=== PATIENT | female | born 1975 | race Caucasian/White ===

== ENCOUNTER 2018-06-17 12:10 | Inpatient (IN) | payer OTHER ==
[~2018-06-17] VITALS: Ht 157.5 cm; Wt 109.5 kg
[~2018-06-17 12:10] MED LIST: OXYTOCIN 30 UNITS/LR 500 ML BAG IV ONE
[2018-06-17 12:53] VITALS: BP 127/84; PULSE 111; Ht 157.5 cm; Wt 109.5 kg
[2018-06-17] MEDS ORDERED: PNV11TAB PO (12:55)
[2018-06-17] MEDS ORDERED: CALC500T11 PO (12:56)
[2018-06-17] MEDS ORDERED: MISOPROSTOL 200 MCG TAB PR PRN ×3 (13:30→22:30)
[2018-06-17] MEDS ORDERED: METHYLERGONOVINE 0.2 MG INJ IM PRN ×3 (13:30→22:30)
[2018-06-17] MEDS ORDERED: OXYTOCIN 30 UNITS/LR 500 ML IV PRN ×3 (13:30→22:30)
[2018-06-17] MEDS ORDERED: CARBOPROST 250 MCG INJ IM PRN ×3 (13:30→22:30)
[2018-06-17] MEDS ORDERED: CLINDAMYCIN 900 MG/D5W (PMX) 50 ML IVPB SCH ×2 (13:30→20:30)
[2018-06-17] MEDS: LACTATED RINGER'S 1,000 ML IV SCH ×2 (14:57→20:17)
[2018-06-17] MEDS ORDERED: OXYTOCIN 30 UNITS/LR 500 ML IV SCH ×2 (17:30→22:03)
[2018-06-17] MEDS ORDERED: BETAMET NA PHOS/AC(6 MG/ML) 2 ML INJ SYG IM SCH ×2 (17:30→21:00)
--- NOTE | 2018-06-17 20:33 | PREAC ---
Date/Time of Note Date/Time of Note DATE: 06/17/18 TIME: 20:33 Anesthesia Eval and Record Evaluation Time Pre-Procedure Interview DATE: 06/17/18 TIME: 20:33 Age 43 Sex female NPO: 8 hrs Preoperative diagnosis Planned procedure repeat c/s Past Medical History Past Medical History: Includes GI: Morbid obesity Surgery & Anesthesia Issues No known issue Meds Anticoagulation: No Beta Mi within 24 hr: No Reason Beta Mi not given: Pt. not on B-Mi Reported Medications Calcium Carbonate (Oysco-500) 500 Mg Tablet, 500 MG PO, TAB 06/17/18 [id number] ( 19) 1 Each Tablet, 1 TAB PO DAILY, TAB 06/17/18 Current Medications Lactated Ringer's 1,000 ml @ 125 mls/hr Q8H IV Last administered on 06/17/18at 20:17; Admin Dose 125 MLS/HR; Start 06/17/18 at 13:27 Betamethasone Acet/Betameth SodPhos (Celestone Soluspan) 12 mg Q12 IM Last administered on 06/17/18at 17:45; Admin Dose 12 MG; Start 06/17/18 at 17:30; Stop 06/18/18 at 05:31 Oxytocin/Lactated Ringer's 500 ml @ 125 mls/hr POST IV ; Start 06/17/18 at 17:30 Clindamycin HCl/ Dextrose 50 ml @ 50 mls/hr ONCE IVPB ; Start 06/17/18 at 20:30 Oxytocin/Lactated Ringer's 500 ml @ 0 mls/hr ONCE PRN IV .VAGINAL BLEEDING; Start 06/17/18 at 20:30 Methylergonovine Maleate (Methergine) 0.2 mg ONCE PRN IM .VAGINAL BLEEDING; Start 06/17/18 at 20:30 Carboprost Tromethamine (Hemabate) 250 mcg ONCE PRN IM .VAGINAL BLEEDING; Start 06/17/18 at 20:30 Misoprostol (Cytotec) 1,000 mcg ONCE PRN [place] .VAGINAL BLEEDING; Start 06/17/18 at 20:30 Meds reviewed: Yes Allergies Coded Allergies: Penicillins (Verified Allergy, Unknown, 06/17/18) ibuprofen (Verified Allergy, Unknown, 06/17/18) latex (Verified Allergy, Unknown, 06/17/18) Allergies Reviewed: Yes Labs/Studies Labs Reviewed: Reviewed by anesthesiologist Result Diagram: 06/17/18 1342 Laboratory Tests 06/17/18 13:42 Blood Bank Test 06/17/18 13:42 Antibody Screen NEGATIVE Blood Type B POSITIVE Rh Immune Globulin Candidate NO test: Positive Pre-procedure Exam Last vitals Vital Signs Date Temp Pulse Resp B/P (MAP) Pulse Ox O2 O2 Flow FiO2 Time Delivery Rate 06/17/18 98.4 111 127/84 12:53 (98) Airway: Adequate mouth opening, Adequate thyromental dist Mallampati: Mallampati II Teeth: Normal Lung: Normal Heart: Normal ASA Physical Status ASA physical status: 2 Emergency: None Planned Anesthetic Neuraxial: Spinal, Epidural Planned Pain Management Sub-arachniod narcotics Pre-operative Attestations Prior to commencing anesthesia and surgery, the patient was re-evaluated, there was verification of: *The patient's identity *The results of appropriate recent lab work and preoperative vital signs *The above evaluation not changing prior to induction *Anesthetic plan, risk benefits, alternative and complications discussed with patient/family; questions answered; patient/family understands, accepts and wishes to proceed. KAVEH ROLAND June 17, 2018 20:33
[2018-06-17] MEDS ORDERED: morphine SULFATE/PF (10 MG/10 ML) INJ ONE (20:37)
[2018-06-17] MEDS ORDERED: ONDANSETRON 4 MG INJ IV PRN ×2 (21:00)
[2018-06-17] MEDS ORDERED: FENTAnyl 50 MCG/ML VIAL IV PRN ×3 (21:00)
[2018-06-17] MEDS ORDERED: DIPHENHYDRAMINE 50 MG INJ IV PRN (21:00)
[2018-06-17] MEDS ORDERED: NALOXONE (0.4 MG/ML) INJ IV PRN (21:00)
[2018-06-17] MEDS ORDERED: HYDROmorphONE 1 MG/5 ML IV SYRINGE IV PRN ×3 (21:00)
[2018-06-17] MEDS ORDERED: METOCLOPRAMIDE 10 MG INJ IV PRN (21:00)
[2018-06-17] MEDS ORDERED: ALBUTEROL 0.083% (NEB) 2.5 MG/3 ML AMP HHN PRN (21:00)
[2018-06-17] MEDS ORDERED: PHENYLephrine (100 MCG/ML) 10ML SYG ONE (21:12)
--- NOTE | 2018-06-17 21:33 | PREOPHP ---
DATE OF ADMISSION: 06/17/2018 ADMITTING DIAGNOSIS: 36 and 6/7 weeks intrauterine in labor with previous and ad vanced maternal age. HISTORY OF PRESENT ILLNESS: This is a 43-year-old lady, 10, para 3 with 4 abortions and 2 sp ontaneous abortions and 2 and 1 normal delivery. Her due date is 07/09/2018. A 36 and 6/7 weeks, admitted to labor and delivery area in early labor and with questionable leaking bag of water . Her CINTHYA on admission is 3.3. She continued to have contractions and the patient was feeling them and intensity was of 8/10. Every time she has the pain, she feels a lot of lower abdominal pressure and back pains. Because of the labor pains then, she was scheduled to have a repeat . Proc edure was explained to the patient and she understood everything totally. The risks, benefits, and a lternatives were discussed with her as well. PAST PERSONAL HISTORY: No history of diabetes, TB, asthma. ALLERGIES: NO ALLERGIES. SOCIAL HISTORY: The patient does not smoke. She does not drink. MEDICATIONS: She does not take any drugs except her iron and vitamins. GYNECOLOGIC HISTORY: She had menarche at the age of 12, every 28 days interval, 3 to 4 days duration , and moderate in amount. FAMILY HISTORY: Mother has diabetes and hypertension. REVIEW OF SYSTEMS: CARDIOVASCULAR: No chest pains. RESPIRATORY: No cough. GASTROINTESTINAL: No diarrhea, no vomiting. GENITOURINARY: No dysuria. PHYSICAL EXAMINATION: GENERAL: Reveals a conscious, coherent lady and in no acute distress. VITAL SIGNS: Her blood pressure 130/80, pulse rate 80 per minute, respirations 16 per minute. BREASTS, HEART AND LUNGS: Within normal limits. ABDOMEN: Soft. No tenderness noted. Fundic height 38 cm. heart tones 140 per minute. PELVIC: Done by me revealed the cervix to be 2 cm dilated, thick, station floating in cephalic prese ntation with the bag of water questionable rupture. The ROM Plus was negative and there was bleeding or fluid coming out. The patient was observed in the hospital, but then she continued to have pains and the patient feels them and so she was scheduled to have for 36 weeks, and 6/7 in labor . Dictated By: BASIL OLVERA/MARCELA Conf#: [id number] [facility]#: [id number]
--- NOTE | 2018-06-17 22:01 | PAC ---
Date/Time of Note Date/Time of Note DATE: 06/17/18 TIME: 22:01 Post-Anesthesia Notes Post-Anesthesia Note Last documented vital signs Vital Signs Date Temp Pulse Resp B/P (MAP) Pulse Ox O2 O2 Flow FiO2 Time Delivery Rate 06/17/18 98.4 111 127/84 12:53 (98) Activity: WNL Respiratory function: WNL Cardiovascular function: WNL Mental status: Baseline Pain reasonably controlled: Yes Hydration appropriate: Yes Nausea/Vomiting absent: Yes KAVEH ROLAND June 17, 2018 22:01
[2018-06-17] MEDS ORDERED: LACTATED RINGER'S 1,000 ML IV SCH (22:03)
--- NOTE | 2018-06-17 22:03 | OPPN ---
Date/Time of Note Date/Time of Note DATE: 06/17/18 TIME: 22:00 Operative Report Planned Procedure Procedure date June 17, 2018 Procedure(s) REPEAT CSECTION AND BTL Performed by see signature line Trap Puller: A 2nd Trap Puller none Pre-procedure diagnosis 36 WEEKS IUP IN LABOR MULTIPARITY [id number] Anesthesia Type: Kyrrj2e spinal Post-Procedure Post-procedure diagnosis 36 WEEKS IUP IN LABOR MULTIPARITY Findings Live Baby GIRL, [id number] , [id number] Estimated Blood Loss: 500 - 600 mls Specimen(s) none Grafts/Implant(s) PLACENTA BOTH TUBES Complication(s) none BASIL TIPTON MD June 17, 2018 22:03
[2018-06-17] MEDS ORDERED: METHYLERGONOVINE 0.2 MG TAB PO PRN (22:30)
[2018-06-17] MEDS ORDERED: HYDROCODONE/APAP (5/325) TAB PO PRN (22:30)
[2018-06-17] MEDS ORDERED: LANOLIN HPA 1 PKT TOP PRN (22:30)
[2018-06-18 00:35] VITALS: BP 108/64; PULSE 102; RESP 20
[2018-06-18] MEDS: DIPHENHYDRAMINE 50 MG INJ IV PRN ×2 (02:25→14:22)
[2018-06-18 03:54] VITALS: BP 122/64; PULSE 90; RESP 20
[2018-06-18 07:50] VITALS: BP 111/61; PULSE 97; RESP 18
[2018-06-18] MEDS: SENNA/DOCUSATE NA (8.6MG/50MG) TAB PO SCH ×2 (09:34→21:19)
[2018-06-18] MEDS ORDERED: HYDROmorphONE 0.5 MG/0.5 ML SYG IV PRN ×3 (10:00)
[2018-06-18] MEDS: LACTATED RINGER'S 1,000 ML IV SCH ×2 (11:01→17:56)
[2018-06-18 12:00] VITALS: BP 113/64; PULSE 100; RESP 18
[2018-06-18] MEDS ORDERED: ALBUTEROL HFA 8 GM INHALER INH PRN (15:00)
[2018-06-18 16:00] VITALS: BP 106/62; PULSE 95; RESP 18
[2018-06-18] MEDS: HYDROCODONE/APAP (5/325) TAB PO PRN ×2 (18:53→22:39)
[2018-06-18 20:15] VITALS: BP 108/66; PULSE 84; RESP 18
--- NOTE | 2018-06-18 21:37 | PN ---
Date/Time of Note Date/Time of Note DATE: 06/18/18 TIME: 21:36 Assessment/Plan VTE Prophylaxis Risk score (from Ns)>0 risk: 3 SCD applied (from [facility] [place]): No SCD contraindicated: low risk/ambulating Pharmacological prophylaxis: NA/contraindicated Pharm contraindication: low risk/ambulating Lines/Catheters [facility]from [facility] Saline Lock Assessment/Plan Assessment/Plan POSTCSECTION DAY 1 ORDERED ADVANCE DIET TOLERATED CBC ON 3RD POSTOP DAY Result Diagram: 06/18/18 0801 06/18/18 0801 Results 24hrs Laboratory Tests Test 06/18/18 06:25 06/18/18 08:01 Lab Scanned Report REFERENCE LAB White Blood Count 25.5 #H Red Blood Count 3.83 L Hemoglobin 11.6 L Hematocrit 35.2 L Mean Corpuscular Volume 91.9 Mean Corpuscular Hemoglobin 30.3 Mean Corpuscular Hemoglobin Concent 33.0 Red Cell Distribution Width 14.5 Platelet Count 188 Mean Platelet Volume 12.0 H Immature Granulocytes % 1.200 H Neutrophils % 85.6 H Lymphocytes % 6.7 L Monocytes % 6.4 Eosinophils % 0.0 Basophils % 0.1 Nucleated Red Blood Cells % 0.0 Immature Granulocytes # 0.300 H Neutrophils # 21.8 H Lymphocytes # 1.7 Monocytes # 1.6 H Eosinophils # 0.0 Basophils # 0.0 Nucleated Red Blood Cells # 0.0 Sodium Level 135 Potassium Level 4.4 Chloride Level 105 Carbon Dioxide Level 20 L Anion Gap 10 Blood Urea Nitrogen 4 L Creatinine 0.42 L Est Glomerular Filtrat Rate mL/min > 60 Glucose Level 106 Calcium Level 10.0 Subjective 24 Hr Interval Summary Free Text/Dictation POST CSECTION DAY 1 COMPLAIN OF INCISIONAL PAINS GOOD URINE OUTPUT PASSING GAS PER RECTUM LITTLE BOWEL MOVEMENT Exam/Review of Systems Exam Vitals Vital Signs Date Temp Pulse Resp B/P (MAP) Pulse Ox O2 O2 Flow FiO2 Time Delivery Rate 06/18/18 98.4 84 18 108/66 Room Air 20:15 (80) 06/18/18 95 16:00 Intake and Output 06/17/18 06/17/18 06/18/18 1515:00 23:00 07:00 IntakeIntake Total 650 ml 1000 ml OutputOutput Total 100 ml 1000 ml BalanceBalance 550 ml 0 ml Exam VITAL SIGNS STABLE: YES AFEBRILE: YES BREAST NOT ENGORGED, NON-TENDER, NO APPRECIABLE MASS: YES LUNGS CLEAR, NO RALES, WHEEZES, RHONCHI: YES SINUS RHYTHM WITHOUT MURMUR: YES ABDOMEN: NON-TENDER FUNDUS: BELOW UMBILICUS BOWEL SOUNDS: PRESENT UTERUS: FIRM INCISION (CLEAN, DRY, AND INTACT): YES LOCHIA: LIGHT DEEP TENDON REFLEXES: 0 EXTREMITIES: NO CALF TENDERNESS EDEMA SCALE: NONE Results Results 24hrs Laboratory Tests Test 06/18/18 06:25 06/18/18 08:01 Lab Scanned Report REFERENCE LAB White Blood Count 25.5 #H Red Blood Count 3.83 L Hemoglobin 11.6 L Hematocrit 35.2 L Mean Corpuscular Volume 91.9 Mean Corpuscular Hemoglobin 30.3 Mean Corpuscular Hemoglobin Concent 33.0 Red Cell Distribution Width 14.5 Platelet Count 188 Mean Platelet Volume 12.0 H Immature Granulocytes % 1.200 H Neutrophils % 85.6 H Lymphocytes % 6.7 L Monocytes % 6.4 Eosinophils % 0.0 Basophils % 0.1 Nucleated Red Blood Cells % 0.0 Immature Granulocytes # 0.300 H Neutrophils # 21.8 H Lymphocytes # 1.7 Monocytes # 1.6 H Eosinophils # 0.0 Basophils # 0.0 Nucleated Red Blood Cells # 0.0 Sodium Level 135 Potassium Level 4.4 Chloride Level 105 Carbon Dioxide Level 20 L Anion Gap 10 Blood Urea Nitrogen 4 L Creatinine 0.42 L Est Glomerular Filtrat Rate mL/min > 60 Glucose Level 106 Calcium Level 10.0 Medications Medication Current Medications Methylergonovine Maleate (Methergine) 0.2 mg Q6H PRN PO .VAGINAL BLEEDING; Start 06/17/18 at 22:30 Acetaminophen/ Hydrocodone Bitart ([place] (5/325)) 1 tab Q4H PRN PO MODERATE PAIN LEVEL 4-6; Start 06/17/18 at 22:30 Acetaminophen/ Hydrocodone Bitart ([place] (5/325)) 2 tab Q4H PRN PO SEVERE PAIN LEVEL 7-10 Last administered on 06/18/18at 18:53; Admin Dose 2 TAB; Start 06/17/18 at 22:30 Simethicone (Mylicon) 160 mg Q8H PRN PO .GAS Last administered on 06/18/18at 21:19; Admin Dose 160 MG; Start 06/17/18 at 22:30 Senna/Docusate Sodium (Senokot-S) 1 tab BID PO Last administered on 06/18/18at 21:19; Admin Dose 1 TAB; Start 06/18/18 at 09:00 Lanolin (Lanolin Hpa) 1 applic BEDSIDE MEDICATION PRN TOP .NIPPLES; Start 06/17/18 at 22:30 Oxytocin/Lactated Ringer's 500 ml @ 0 mls/hr ONCE PRN IV .VAGINAL BLEEDING; Start 06/17/18 at 22:30 Methylergonovine Maleate (Methergine) 0.2 mg ONCE PRN IM .VAGINAL BLEEDING; Start 06/17/18 at 22:30 Carboprost Tromethamine (Hemabate) 250 mcg ONCE PRN IM .VAGINAL BLEEDING; Start 06/17/18 at 22:30 Misoprostol (Cytotec) 1,000 mcg ONCE PRN [place] .VAGINAL BLEEDING; Start 06/17/18 at 22:30 Hydromorphone HCl (Dilaudid) 0.2 mg Q4H PRN IV MILD PAIN 1-4; Start 06/18/18 at 10:00 Hydromorphone HCl (Dilaudid) 0.4 mg Q4H PRN IV MODERATE PAIN 5-6 Last admini stered on 06/18/18at 14:33; Admin Dose 0.4 MG; Start 06/18/18 at 10:00 Hydromorphone HCl (Dilaudid) 0.6 mg Q4H PRN IV SEVERE PAIN LEVEL 7-10; Start 06/18/18 at 10:00 Lactated Ringer's 1,000 ml @ 125 mls/hr Q8H IV Last administered on 06/18/18at 17:56; Admin Dose 125 MLS/HR; Start 06/18/18 at 11:00 Albuterol (Ventolin Hfa) 2 puff Q4H RESP THERAPY PRN INH SHORTNESS OF BREATH; Start 06/18/18 at 15:00 BASIL TIPTON MD June 18, 2018 21:37
[2018-06-19] MEDS: HYDROCODONE/APAP (5/325) TAB PO PRN ×4 (03:09→22:31)
[2018-06-19] MEDS ORDERED: MAGNESIUM HYDROXIDE 30ML CUP PO ONE ×3 (04:00→15:30)
[2018-06-19] MEDS ORDERED: BISACODYL 10 MG SUPP PR ONE ×3 (04:00→20:00)
[2018-06-19 04:07] VITALS: BP 110/84; PULSE 80; RESP 18
[2018-06-19] MEDS: SENNA/DOCUSATE NA (8.6MG/50MG) TAB PO SCH ×2 (08:44→21:22)
[2018-06-19 08:50] VITALS: BP 110/64; PULSE 93; RESP 16
[2018-06-19] MEDS: LACTATED RINGER'S 1,000 ML IV SCH ×2 (13:28→13:29)
[2018-06-19 15:55] VITALS: BP 114/62; PULSE 85; RESP 18
--- NOTE | 2018-06-19 16:35 | OPR ---
DATE OF OPERATION: 06/17/2018 PREOPERATIVE DIAGNOSES: 1. A 36 and 6/7 weeks' intrauterine in labor. 2. Previous section. 3. Multiparity. 4. Desires sterilization. POSTOPERATIVE DIAGNOSES: 1. A 36 and 6/7 weeks' intrauterine in labor. 2. Previous section. 3. Multiparity. 4. Desires sterilization. 5. Severe pelvic and abdominal adhesions. OPERATION PERFORMED: Repeat low transverse section plus bilateral tubal ligation and transe ction and lysis of abdominal and pelvic adhesions. SURGEON: Basil Crane MD STOVE FITTER: Cary Espinal MD ANESTHESIA: Spinal. ANESTHESIOLOGIST: Chad Kwok MD OPERATIVE TECHNIQUE: Under spinal anesthesia, the patient was prepped and draped in the usual fashio n for abdominal surgery. After checking for the effect of the anesthesia, Pfannenstiel incision, 12 cm skin incision was performed. The previous scar was excised. The incision was carried from the sk in up to the fascia. Upon opening the skin up to the fascia, small blood vessels were noted to be oo zing and these were all cauterized. Fascia was opened transversely followed by splitting the muscles vertically and the peritoneum vertically. Upon opening the abdominal cavity, there were omental adh esions noted all over the anterior parietal peritoneum. All these adhesions were lysed by sharp and blunt dissection. After lysing all the adhesions, then the bladder blade was put in place. A small kriss was performed from the serosa up to the endometrium on the lower uterine segment and about 2 inc hes above the lower uterine segment. The lower uterine segment was noted to be thinned out. An inci charles was performed from the serosa up to the endometrium on the lower uterine segment and incision wa s carried from the serosa up to the endometrium and carried sidewise with the aid of my 2 fingers. M y left hand was inserted in the lower segment of the uterus and the bag of water was ruptured. Clear fluid was noted. Baby's head was delivered with good fundal pressure. Baby's airway was quickly reynolds ctioned with amniotic fluid. Then, the anterior shoulder, posterior shoulder and rest of the body of the baby were delivered. Baby was handed to the nursery nurse after 30 seconds after the cord was c lamped. The placenta was delivered manually and complete. The uterus was exteriorized. The uterus was cleansed with wet lap sponge to make sure that no membranes were left behind. After correc t sponge count, the uterus was closed in the usual fashion using #1 chromic for the first layer, cont inuous locking suture was used followed by #1 chromic for the second layer, imbricating sutures were used. Bleeders were checked and there was no bleeding noted. After checking for any bleeders, which there were none, both tubes and ovaries were inspected. They were healthy looking. The back of the uterus was checked for any hematoma and there was none noted. Then, the right tube was grasped in t he center where the avascular area was. A 1 cm tube was stick tied at the proximal and distal portio ns with 2-0 silk stick tie with 2-0 chromic above the first silk tie and another free tie with 2-0 ch romic above the second tie. The right tube was cut and the cut ends were cauterized. The right fimb surinder was identified. Same thing was done on the left side. Left fimbria was identified. After check ing for any bleeders in which there were none, then the uterus was put back to the pelvic cavity. On ce again, uterine incision was checked for any bleeders and there was no bleeding noted. After corre ct sponge count, needle count and instrument count as confirmed by the technology coach and fan blade aligner, the abdomen was closed in the usual fashion using 0 Vicryl for the peritoneum, 0 Vicryl for the muscles. For the fascia, 0 Vicryl continuous stitch was used followed by few [id number]-flarw sutures. For t he subcutaneous tissue, it was closed with 3-0 Vicryl and the skin was closed with 3-0 Vicryl, subcut icular suture was used. The patient tolerated the procedure well. Estimated blood loss about was 60 0 mL. Vital signs were stable during and after the procedure. She delivered a healthy baby girl, we ight 2805 grams, 21:08, 9 and 9. Dictated By: BASIL OLVERA/NTS Conf#: [id number] DID#: [id number]
--- NOTE | 2018-06-19 16:56 | PN ---
Date/Time of Note Date/Time of Note DATE: 06/19/18 TIME: 16:54 Assessment/Plan VTE Prophylaxis Risk score (from Nsg)>0 risk: 3 SCD applied (from Ns): No SCD contraindicated: low risk/ambulating Pharmacological prophylaxis: NA/contraindicated Pharm contraindication: low risk/ambulating Lines/Catheters IV Catheter Type (from Nrsg): Saline Lock Assessment/Plan Assessment/Plan POST CSECTION DAY 2 MOM AND DULCOLAX SUPPOSITORY HOME TOMORROW CBC TOMORROW COUNSELED INSTRUCTED PRESCRIPTION GIVEN FOR PAIN RETURN TO CLINIC IN 2 WEEKS CALL OFFICE IF THERE IS ANY PROBLEM OR CONCERN CONTINUE WITH VITAMINS OD AND FERROUS SULFATE 325MG PO TID DIET ADVISED Result Diagram: 06/19/18 0732 06/18/18 0801 Results 24hrs Laboratory Tests Test 06/19/18 07:32 White Blood Count 18.9 #H Red Blood Count 3.91 L Hemoglobin 11.6 L Hematocrit 36.8 L Mean Corpuscular Volume 94.1 Mean Corpuscular Hemoglobin 29.7 Mean Corpuscular Hemoglobin Concent 31.5 L Red Cell Distribution Width 14.6 H Platelet Count 197 Mean Platelet Volume 11.9 H Immature Granulocytes % 1.200 H Neutrophils % 79.9 H Lymphocytes % 11.5 L Monocytes % 6.8 Eosinophils % 0.4 Basophils % 0.2 Nucleated Red Blood Cells % 0.0 Immature Granulocytes # 0.220 H Neutrophils # 15.1 H Lymphocytes # 2.2 Monocytes # 1.3 H Eosinophils # 0.1 Basophils # 0.0 Nucleated Red Blood Cells # 0.0 Subjective 24 Hr Interval Summary Free Text/Dictation POST CSECTION DAY 2 NO BOWEL MOVEMENT GOOD URINE OUTPUT FEELS LESS INCISIONAL PAINS Exam/Review of Systems Exam Vitals Vital Signs Date Temp Pulse Resp B/P (MAP) Pulse Ox O2 O2 Flow FiO2 Time Delivery Rate 06/19/18 98.5 93 16 110/64 99 Room Air 08:50 (79) Intake and Output 06/18/18 06/18/18 06/19/18 1414:59 22:59 06:59 IntakeIntake Total 750 ml OutputOutput Total 850 ml 1700 ml 300 ml BalanceBalance -100 ml -1700 ml -300 ml Exam VITAL SIGNS STABLE: YES AFEBRILE: YES BREAST NOT ENGORGED, NON-TENDER, NO APPRECIABLE MASS: YES LUNGS CLEAR, NO RALES, WHEEZES, RHONCHI: YES SINUS RHYTHM WITHOUT MURMUR: YES ABDOMEN: NON-TENDER FUNDUS: BELOW UMBILICUS BOWEL SOUNDS: PRESENT UTERUS: FIRM INCISION (CLEAN, DRY, AND INTACT): YES LOCHIA: LIGHT DEEP TENDON REFLEXES: 0 EXTREMITIES: NO CALF TENDERNESS EDEMA SCALE: NONE Results Results 24hrs Laboratory Tests Test 06/19/18 07:32 White Blood Count 18.9 #H Red Blood Count 3.91 L Hemoglobin 11.6 L Hematocrit 36.8 L Mean Corpuscular Volume 94.1 Mean Corpuscular Hemoglobin 29.7 Mean Corpuscular Hemoglobin Concent 31.5 L Red Cell Distribution Width 14.6 H Platelet Count 197 Mean Platelet Volume 11.9 H Immature Granulocytes % 1.200 H Neutrophils % 79.9 H Lymphocytes % 11.5 L Monocytes % 6.8 Eosinophils % 0.4 Basophils % 0.2 Nucleated Red Blood Cells % 0.0 Immature Granulocytes # 0.220 H Neutrophils # 15.1 H Lymphocytes # 2.2 Monocytes # 1.3 H Eosinophils # 0.1 Basophils # 0.0 Nucleated Red Blood Cells # 0.0 Medications Medication Current Medications Methylergonovine Maleate (Methergine) 0.2 mg Q6H PRN PO .VAGINAL BLEEDING; Start 06/17/18 at 22:30 Acetaminophen/ Hydrocodone Bitart ([place] (5/325)) 1 tab Q4H PRN PO MODERATE PAIN LEVEL 4-6; Start 06/17/18 at 22:30 Acetaminophen/ Hydrocodone Bitart (Ramer (5/325)) 2 tab Q4H PRN PO SEVERE PAIN LEVEL 7-10 Last administered on 06/19/18at 14:54; Admin Dose 2 TAB; Start 06/17/18 at 22:30 Simethicone (Mylicon) 160 mg Q8H PRN PO .GAS Last administered on 06/19/18at 15:05; Admin Dose 160 MG; Start 06/17/18 at 22:30 Senna/Docusate Sodium (Senokot-S) 1 tab BID PO Last administered on 06/19/18at 08:44; Admin Dose 1 TAB; Start 06/18/18 at 09:00 Lanolin (Lanolin Hpa) 1 applic BEDSIDE MEDICATION PRN TOP .NIPPLES; Start 06/17/18 at 22:30 Oxytocin/Lactated Ringer's 500 ml @ 0 mls/hr ONCE PRN IV .VAGINAL BLEEDING; Start 06/17/18 at 22:30 Methylergonovine Maleate (Methergine) 0.2 mg ONCE PRN IM .VAGINAL BLEEDING; Start 06/17/18 at 22:30 Carboprost Tromethamine (Hemabate) 250 mcg ONCE PRN IM .VAGINAL BLEEDING; Start 06/17/18 at 22:30 Misoprostol (Cytotec) 1,000 mcg ONCE PRN [place] .VAGINAL BLEEDING; Start 06/17/18 at 22:30 Hydromorphone HCl (Dilaudid) 0.2 mg Q4H PRN IV MILD PAIN 1-4; Start 06/18/18 at 10:00 Hydromorphone HCl (Dilaudid) 0.4 mg Q4H PRN IV MODERATE PAIN 5-6 Last administered on 06/18/18at 14:33; Admin Dose 0.4 MG; Start 06/18/18 at 10:00 Hydromorphone HCl (Dilaudid) 0.6 mg Q4H PRN IV SEVERE PAIN LEVEL 7-10; Start 06/18/18 at 10:00 Lactated Ringer's 1,000 ml @ 125 mls/hr Q8H IV Last administered on 06/18/18at 17:56; Admin Dose 125 MLS/HR; Start 06/18/18 at 11:00 Albuterol (Ventolin Hfa) 2 puff Q4H RESP THERAPY PRN INH SHORTNESS OF BREATH; Start 06/18/18 at 15:00 BASIL TIPTON MD June 19, 2018 16:56
[2018-06-19 20:00] VITALS: BP 114/69; PULSE 96; RESP 18
[2018-06-20] MEDS: HYDROCODONE/APAP (5/325) TAB PO PRN ×2 (03:35→07:38)
[2018-06-20 04:06] VITALS: BP 114/69; PULSE 86; RESP 18
[2018-06-20 07:40] VITALS: BP 109/65; PULSE 79; RESP 18
[2018-06-20] MEDS ORDERED: MEASLES,MUMPS,RUBELLA VACCINE INJ SC* ONE (09:00)
[2018-06-20] MEDS: SENNA/DOCUSATE NA (8.6MG/50MG) TAB PO SCH (09:32)
[2018-06-20] MEDS ORDERED: BACITRACIN 0.9 GM OINT TOP ONE (14:30)
[2018-06-20] MEDS ORDERED: BACITRACIN 0.5%/ZINC 28.35 GM OINT TOP ONE (14:30)
--- NOTE | 2018-06-21 17:27 | DELSUM ---
Delivery Summary A-C Datetime Report Generated by CPN: 06/21/2018 17:27 DELIVERY PERSONNEL Office Assistance: Ping Rodriguez MATERNAL INFORMATION Delivery Anesthesia: Spinal Medications in Delivery: SEE ANESTHESIA RECORD Delivery QBL (ml): 600 Placenta Cultured: No Maternal Complications: Other Other Maternal Complications: previous c/section x1, low CINTHYA LABOR SUMMARY EDC: 07/09/2018 00:00 No. Babies in Womb: 1 Attempted: No Labor Anesthesia: None LABOR INFORMATION Reason for Induction: Not Applicable Onset of Labor: 06/17/2018 12:00 Oxytocin: N/A Group B Beta Strep: Negative Antibiotics # of Doses: X1 CLEOCIN Antibiotics Time of Last Dose: 06/17/2018 20:51 Steroids Given: Partial Course Reason Steroids Not Administered: Indication MEMBRANES Membranes Rupture Method: Artificial Rupture of Membranes: 06/17/2018 21:09 Length of Rupture (hr): -0.02 Amniotic Fluid Color: Clear Amniotic Fluid Amount: Small Amniotic Fluid Odor: None STAGES OF LABOR Stage 3 hr: 0 Stage 3 min: 1 Total Time in Labor hr: 9 Total Time in Labor min: 9 CSECTION DELIVERY Primary Indication: Other Other Primary Indication: prev c/section x2 Secondary Indication: N/A CSection Urgency: Elective CSection Incidence: Repeat Labor: Labor Elective: Nonelective CSection Incision: Lower Uterine Transverse Sterilization Procedure: [place] BABY A INFORMATION Infant Delivery Date/Time: 06/17/2018 21:08 Method of Delivery: Born in Route : No : N/A Forceps: N/A Vacuum Extraction: N/A Shoulder Dystocia : N/A SHOULDER DYSTOCIA BABY A Infant Delivery Date/Time: 06/17/2018 21:08 PRESENTATION/POSITION BABY A Presentation: Cephalic Cephalic Presentation: Vertex Vertex Position: Left Occipital Anterior Breech Presentation: N/A PLACENTA INFORMATION BABY A Placenta Delivery Time : 06/17/2018 21:09 Placenta Method of Delivery: Expressed Placenta Status: Delivered SCORES BABY A Heart Rate 1 min: >100 bpm Resp Effort 1 min: Good Cry Reflex Irritability 1 min: Cough/Sneeze/Pulls Away Muscle Tone 1 min: Active Motion Color 1 min: Blue/Pale Resuscitation Effort 1 min: Tactile Stimulation; PPV/NCPAP SCORE 1 MIN: 8 Heart Rate 5 min: >100 bpm Resp Effort 5 min: Good Cry Reflex Irritability 5 min: Cough/Sneeze/Pulls Away Muscle Tone 5 min: Active Motion Color 5 min: Body [place], Extremit Blue Resuscitation Effort 5 min: Tactile Stimulation SCORE 5 MIN: 9 INFANT INFORMATION BABY A Gestational Age at Delivery: 36.6 Gestational Status: Late - 34- 36.6 Weeks Outcome : Liveborn Infant Condition : Stable Infant Sex: Female IDENTIFICATION/MEDS BABY A ID Band Number: [id number] ID Band Location: Right Leg; Left Arm Sensor Applied: Yes Sensor Number: [id number] Sensor Location : Cord Clamp Vitamin K Given : Not Given Erythromycin Given: Not Given WEIGHT/LENGTH BABY A Infant Birthweight (gm): 2805 Infant Weight (lb): 6 Infant Weight (oz): 3 Infant Length (in): 18.00 Length (cm): 45.72 CORD INFORMATION BABY A No. Cord Vessels: 3 Nuchal Cord : N/A Cord Blood Taken: Yes Suction: Mouth; Nose ASSESSMENT BABY A Complications: None Physical Findings at Delivery: Within Normal Limits Infant Respirations: Appears Normal Hydraulic Design Engineer/ALS Called : No Infant Care By: Marita FAJARDO Transferred To: Remains with Mother
--- NOTE | 2018-06-21 23:20 | NSTRPT ---
NST Information Datetime Report Generated by CPN: 06/21/2018 23:19 Datetime: 06/17/2018 10:50 Test Number: 2 Reason for NST: Other Reason for NST Other: Adavnaced Maternal Age Test Evaluation Comments: pt to u/s. CINTHYA 3.5cm. CEPHALIC. Dr. Palma recomends to send to hospital to r/o SROM witho ut NST. patient states she is feeling pressure too. she states she is "not sure since when she is fee ling wet down there". Dr Crane notified and gives new orders to send patient to [facility]. Explained t o patient plan of care. Patient states understanding. No further questions asked at this time. Electronically Signed By E-Signature: with User ID: [id number] Datetime: 06/10/2018 11:51 NST Information EGA: 35.6 Datetime: 06/10/2018 11:15 NST Duration (Min): 31
== END 2018-06-20 16:00 | disposition home or self-care (01) | DRG 785 ==
LOC: OBT 12:10 → L-D 12:10 → OBT 13:36 → L-D 20:32 → PP1 06-18 00:27
PROVIDERS: ADMIT Obstetrics & Gynecology; ATTEND Obstetrics & Gynecology
PROC: 0UB70ZZ Excision of Bilateral Fallopian Tubes, Open Approach (ICD-10-PCS; 2018-06-17)
PROC: 0DNU0ZZ Release Omentum, Open Approach (ICD-10-PCS; 2018-06-17)
PROC: 10D00Z1 Extraction of Products of Conception, Low, Open Approach (ICD-10-PCS; principal; 2018-06-17 20:30)
DX: O34.219 Maternal care for unspecified type scar from previous cesarean delivery (principal); O99.214 Obesity complicating childbirth; E66.01 Morbid (severe) obesity due to excess calories; O99.89 Other specified diseases and conditions complicating pregnancy, childbirth and the puerperium; N73.6 Female pelvic peritoneal adhesions (postinfective); G89.18 Other acute postprocedural pain; Z37.0 Single live birth; Z3A.36 36 weeks gestation of pregnancy; Z30.2 Encounter for sterilization
CPT/HCPCS: 76815; 80048; 80307; 81001; 84112; 85025; 85610; 85730; 86592; 86850; 86900; 86901; 87086; 87340; 88302; 88305; 99464; G0463; J0702; J1170; J1200; J2274; J2370; J2405; J2590; J3010; J7120